=== PATIENT | male | born 1985 | race Asian ===

== ENCOUNTER 2016-11-21 13:30 | Emergency (ER) | payer BC, MEDICAID | END 2016-11-21 14:08 | disposition home or self-care (01) | DX: H66.92 Otitis media, unspecified, left ear (principal); R03.0 Elevated blood-pressure reading, without diagnosis of hypertension ==

== ENCOUNTER 2017-10-20 06:50 | Emergency (ER) | payer MEDICAID ==
[2017-10-20] MEDS ORDERED: ONDANSETRON ODT 4 MG TABLET TL STA (07:34)
[2017-10-20] MEDS ORDERED: KETOROLAC 60 MG/2 ML VIAL IM STA (07:34)
--- NOTE | 2017-10-20 07:42 | ED Physician Documentation ---
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 denies: Loss of vision Ears: denies: Loss of hearing, Ear pain Throat: denies: Sore throat Cardiac: denies: Chest pain / pressure Respiratory: denies: Dyspnea GI: denies: Abdominal Pain, Nausea, Vomiting Neurologic: reports: Headache. denies: Focal weakness, Numbness, Head injury Endocrine: denies: Easy bruising / bleeding Immunocompromised: denies: Immunocompromised PD PAST MEDICAL HISTORY - Past Medical History Past Medical History: No - Past Surgical History Past Surgical History: Yes HEENT: Tonsil/Adenoidectomy - Present Medications Home Medications: Ambulatory Orders Medication Instructions Recorded Confirmed Meloxicam 1 tab PO DAILY 10/20/17 10/20/17 - Allergies Allergies/Adverse Reactions: Allergies Allergy/AdvReac Type Severity Reaction Status Date / Time No Known Drug Allergies Allergy Verified 10/20/17 06:55 - Social History Does the pt smoke?: Yes Smoking Status: Current every day smoker Does the pt drink ETOH?: Yes Does the pt have substance abuse?: No - Immunizations Immunizations are current?: Yes Immunizations: TDAP >10years/unknown - POLST Patient has POLST: No PD ED PE NORMAL - Vitals Vital signs reviewed: Yes - General General: Alert and oriented X 3 - HEENT HEENT: PERRL, EOMI, Other (no TA cord or TTP, globes soft not hazy in injected) - Neck Neck: Supple, no meningeal sign - Cardiac Cardiac: RRR - Respiratory Respiratory: No respiratory distress, Clear bilaterally - Abdomen Abdomen: Soft, Non tender - Derm Derm: Normal color - Neuro Neuro: Alert and oriented X 3, 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, No motor deficit, No sensory deficit, Normal speech Results - Vitals Vitals: Vital Signs - 24 hr 10/20/17 06:50 Temperature 36.2 C L Heart Rate 72 Respiratory 18 Rate Blood Pressure 131/86 H O2 Saturation 98 Oxygen O2 Source Room air - Rads (name of study) CTH Radiology: See rad report (no acute) PD MEDICAL DECISION MAKING - ED course ED course: sounds like migraine given hx of several yr of recurrent same location CARLTON but no outpt imaging this far did get CT which was thankfully neg also exam and hx do not suggest TA, glaucoma, CO exposure, meningitis, SAH etc felt better with toradol and zofran ready to go home Departure - Departure Disposition: 01 Home, Self Care Clinical Impression: Headache Qualifiers: Headache type: unspecified Headache chronicity pattern: episodic headache Intractability: not intractable Qualified Code(s): R51 - Headache Condition: Good Instructions: ED Headache Migraine Follow-Up: Wayne Estes MD [Primary Care Provider] - Comments: The CT was fine. These headaches sound very much like migraines Discuss with your headache specialist if there is any medication you can take to 1) prevent the headaches form occurring (such as propanolol or amitriptyline) 2) to break the headache when it first starts (such as imitrex) Forms: Activity restrictions
--- NOTE | 2017-10-20 08:00 | CT Report ---
EXAM: CT HEAD EXAM DATE: 10/20/2017 07:42 AM. CLINICAL HISTORY: Recurring L sided CARLTON - no imaging thus far. COMPARISON: 01/18/2007. TECHNIQUE: Multiaxial CT images were obtained from the foramen magnum to the vertex. Reformats: Coron al. IV contrast: None. In accordance with CT protocol optimization, one or more of the following dose reduction techniques w ere utilized for this exam: automated exposure control, adjustment of mA and/or KV based on patient s ize, or use of iterative reconstructive technique. FINDINGS: Parenchyma: No intraparenchymal hemorrhage. No evidence of mass, midline shift, or CT findings of inf arction. Davis-white differentiation is distinct. Extraaxial Spaces: Normal for age. No subdural or epidural collections identified. Ventricles: Normal in size and position. Sinuses and Orbits: Imaged paranasal sinuses, orbits, and mastoids show no significant abnormality. Bones: No evidence of fracture or calvarial defect. Other: None. IMPRESSION: Normal head CT. No significant change from prior. [facility] Referring Provider Line: [phone] SITE ID: [id number]
--- NOTE | 2017-10-20 08:00 | CT Preliminary Report ---
Exam: CT HEAD W/O IMPRESSION: Normal head CT. No significant change from prior. [facility] SITE ID: [id number]
[2017-10-20 08:56] VITALS: BP 113/64
== END 2017-10-20 09:05 | disposition home or self-care (01) ==
LOC: ED 06:50
DX: R51 Headache (principal); F17.200 Nicotine dependence, unspecified, uncomplicated
CPT/HCPCS: 70450; 96372; 99283; Q0162

== ENCOUNTER 2017-11-03 16:22 | Emergency (ER) | payer OTHER, MEDICAID ==
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
[2017-11-03] MEDS ORDERED: IBUPROFEN 600 MG TABLET PO STA (19:21)
[2017-11-03] MEDS ORDERED: METHOCARBAMOL 500 MG TABLET PO STA (19:22)
[2017-11-03] MEDS ORDERED: traMADol 50 MG TABLET PO STA (19:22)
--- NOTE | 2017-11-03 20:48 | CT Preliminary Report ---
Exam: CT LUMBAR SPINE W/O IMPRESSION: 1. No acute bony abnormality. 2. Old large central and left-sided disk herniation L4-L5. Moderate central spinal canal stenosis. Mi ld right and moderate to marked left L4-L5 neural foraminal compromise. [facility] SITE ID: [id number]
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
--- NOTE | 2017-11-03 20:49 | CT Preliminary Report ---
Exam: CT HEAD W/O IMPRESSION: Head CT: Negative. Cervical Spine CT: Negative. [facility] SITE ID: [id number]
--- NOTE | 2017-11-03 20:49 | CT Preliminary Report ---
Exam: CT CERVICAL SPINE W/O IMPRESSION: Head CT: Negative. Cervical Spine CT: Negative. [facility] SITE ID: [id number]
--- NOTE | 2017-11-03 20:58 | CT Preliminary Report ---
Exam: CT THORACIC SPINE W/O IMPRESSION: No acute bony abnormality. [facility] SITE ID: [id number]
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
[2017-11-03 21:18] VITALS: BP 115/68
== END 2017-11-03 21:39 | disposition home or self-care (01) ==
LOC: ED 16:22
DX: S16.1XXA Strain of muscle, fascia and tendon at neck level, initial encounter (principal); S39.012A Strain of muscle, fascia and tendon of lower back, initial encounter; S00.03XA Contusion of scalp, initial encounter; V53.5XXA Driver of pick-up truck or van injured in collision with car, pick-up truck or van in traffic accident, initial encounter; Z87.891 Personal history of nicotine dependence
CPT/HCPCS: 70450; 72125; 72128; 72131; 99283; A9270

== ENCOUNTER 2018-02-11 13:27 | Emergency (ER) | payer MEDICAID ==
[2018-02-11 14:14] LABS: CALCIUM 8.8 mg/dL (8.5-10.3); CREATININE 0.9 mg/dL (0.6-1.2)
--- NOTE | 2018-02-11 14:52 | ED Physician Documentation ---
History of Present Illness - Stated complaint Stated Complaint: SOA/WEAKNESS/LIGHTHEAD - Chief complaint Chief Complaint: General - History obtained from History obtained from: Patient - History of Present Illness Timing: How many minutes ago (30) - Additonal information Additional information: The patient is a 32-year-old male who presents with lightheadedness and shortness of breath that started suddenly about 30 minutes prior to arrival while sitting at work. He reports numbness in his fingers, toes, and lips. He denies cough, chest pain, nausea or vomiting. He denies history of similar symptoms in the past. He admits to drinking "a couple of beers" last night. He denies the use of other drugs. Review of Systems Constitutional: denies: Fever Eyes: denies: Decreased vision Ears: denies: Tinnitus/ringing Nose: denies: Congestion Throat: denies: Sore throat Cardiac: denies: Chest pain / pressure Respiratory: denies: Cough GI: denies: Abdominal Pain, Nausea, Vomiting : denies: Dysuria Skin: denies: Rash Musculoskeletal: denies: Extremity pain, Extremity swelling Neurologic: reports: Numbness (Numbness and tingling in his fingertips.). denies: Focal weakness, Headache PD PAST MEDICAL HISTORY - Past Medical History Past Medical History: No Cardiovascular: None Respiratory: None - Past Surgical History Past Surgical History: Yes HEENT: Tonsil/Adenoidectomy - Present Medications Home Medications: Ambulatory Orders Medication Instructions Recorded Confirmed No Known Home Medications [No 02/11/18 02/11/18 Known Home Medications] - Allergies Allergies/Adverse Reactions: Allergies Allergy/AdvReac Type Severity Reaction Status Date / Time No Known Drug Allergies Allergy Verified 10/20/17 06:55 - Social History Does the pt smoke?: No Smoking Status: Never smoker Does the pt drink ETOH?: Yes Does the pt have substance abuse?: No - Immunizations Immunizations are current?: Yes Immunizations: TDAP >10years/unknown - POLST Patient has POLST: No PD ED PE NORMAL - Vitals Vital signs reviewed: Yes (Initially hypertensive.) - General General: Alert and oriented X 3, Well developed/nourished - HEENT HEENT: Atraumatic, Moist mucous membranes, Pharynx benign - Neck Neck: Supple, no meningeal sign, No adenopathy - Cardiac Cardiac: RRR - Respiratory Respiratory: Clear bilaterally - Abdomen Abdomen: Soft, Non tender - Back Back: No CVA TTP - Derm Derm: No rash - Extremities Extremities: No edema, No calf tenderness / cord - Neuro Neuro: Alert and oriented X 3, No motor deficit, Normal speech Results - Vitals Vitals: Oxygen O2 Source Room air - Labs Labs: Laboratory Tests 02/11/18 14:00 Sodium 135 Potassium 3.5 Chloride 103 Carbon Dioxide 25 Anion Gap 7.0 BUN 13 Creatinine 0.9 Estimated GFR (MDRD) 98 Glucose 107 H Calcium 8.8 PD MEDICAL DECISION MAKING - ED course Complexity details: reviewed old records, reviewed results, re-evaluated patient , considered differential, d/w patient ED course: The patient's presentation is most consistent with hyperventilation syndrome. His presentation does not suggest pneumothorax, and I doubt pulmonary embolus, with a pulse oximetry of 100% on room air with no drop in pulse oximetry with physical activity. His blood sugar is normal. He was observed in the emergency department for more than one hour, during which time his symptoms completely resolved. I discussed with him the likely etiology of his symptoms, as well as potentially worrisome signs or symptoms that should prompt reevaluation in the emergency department. - Sepsis Event Vital Signs: Oxygen O2 Source Room air Departure - Departure Disposition: 01 Home, Self Care Clinical Impression: Acute hyperventilation Condition: Stable Instructions: ED Hyperventilation Syndrome Follow-Up: Wayne Estes MD [Primary Care Provider] - Comments: Return to the emergency department if you develop increasing shortness of breath , lightheadedness, or otherwise worsening symptoms. Discharge Date/Time: 02/11/18 15:10
[2018-02-11 14:56] VITALS: BP 131/80
== END 2018-02-11 15:10 | disposition home or self-care (01) ==
LOC: ED 13:27
DX: R06.4 Hyperventilation (principal)
CPT/HCPCS: 36415; 80048; 99283

== ENCOUNTER 2021-08-03 13:11 | Emergency (ER) | payer MEDICAID, OTHER ==
[2021-08-03 13:36] VITALS: BP 119/74
== END 2021-08-03 14:39 | disposition left against medical advice (07) ==
LOC: ED 13:11
DX: Z53.21 Procedure and treatment not carried out due to patient leaving prior to being seen by health care provider (principal)

== ENCOUNTER 2023-09-11 07:24 | Emergency (ER) | payer OTHER ==
[2023-09-11 07:42] VITALS: BP 147/84; O2SAT 100
--- NOTE | 2023-09-11 08:12 | XRAY Report ---
PROCEDURE: Chest 2V INDICATIONS: cough TECHNIQUE: 2 views of the chest were acquired. COMPARISON: None. FINDINGS: Surgical changes and devices: None. Lungs and pleura: No pleural effusions or pneumothorax. Lungs are clear. Mediastinum: Mediastinal contours appear normal. Heart size is normal. Bones and chest wall: No suspicious bony lesions. Overlying soft tissues appear unremarkable. IMPRESSION: No acute cardiopulmonary process. Reviewed by: Phani Forte MD on 09/11/2023 8:11 AM PST Approved by: Phani Forte MD on 09/11/2023 8:11 AM PST Station ID: [id number]
[2023-09-11 08:33] LABS: B. PARAPERTUSSIS- RESP PCR PAN NOT DETECTED; B. PERTUSSIS- RESP PCR PANEL NOT DETECTED; C. PNEUMONIAE- RESP PCR PANEL NOT DETECTED; CORONAVIRUS 229E-RESP PCR NOT DETECTED; CORONAVIRUS HKU1-RESP PCR NOT DETECTED; CORONAVIRUS NL63-RESP PCR NOT DETECTED; CORONAVIRUS OC43-RESP PCR NOT DETECTED; HUMAN METAPNEUMOVIRUS NOT DETECTED; INFLUENZA A- RESP PCR PANEL NOT DETECTED; INFLUENZA B - RESP PCR PANEL NOT DETECTED; M. PNEUMONIAE- RESP PCR PANEL NOT DETECTED; PARAINFLUENZA VIRUS 1 NOT DETECTED; PARAINFLUENZA VIRUS 2 NOT DETECTED; PARAINFLUENZA VIRUS 3 NOT DETECTED; PARAINFLUENZA VIRUS 4 NOT DETECTED; RHINOVIRUS/ENTEROVIRUS NOT DETECTED; RSV- RESP PCR PANEL NOT DETECTED; SARS-CoV-2 -RESP PCR PANEL NOT DETECTED
--- NOTE | 2023-09-11 08:49 | ED Physician Documentation ---
PD HPI URI - Stated complaint Stated Complaint: SOA, COUGHING - Chief complaint Chief Complaint: Resp - History obtained from History obtained from: Patient - Additional information Additional information: Patient is a 38-year-old male presenting for evaluation of a productive cough, nasal congestion and fatigue for the past 3 days. Patient states his symptoms started on Wednesday. He has tried TheraFlu at night without any significant improvement. He patient reports that he wakes up with a worse cough and feels a lot of congestion particular in the mornings. It when he is in the shower he fe els like congestion loosen and feels like this helps with his breathing. He does not smoke. Denies recent travel. States his children have also been ill with similar symptoms. Has not taken a COVID test. No fevers. He has been eating and drinking fine. No vomiting or diarrhea. Review of Systems Constitutional: denies: Fever Nose: reports: Congestion Cardiac: denies: Chest pain / pressure Respiratory: reports: Dyspnea (When coughing), Cough GI: denies: Abdominal Pain, Vomiting PD PAST MEDICAL HISTORY - Past Medical History Cardiovascular: None Respiratory: Sleep apnea, CPAP use Neuro: None Endocrine/Autoimmune: None GI: None : None Psych: None Musculoskeletal: None - Past Surgical History Past Surgical History: Yes HEENT: Tonsil/Adenoidectomy - Present Medications Home Medications: Ambulatory Orders Medication Instructions Recorded Confirmed No Known Home Medications 02/11/18 09/11/23 - Allergies Allergies/Adverse Reactions: Allergies Allergy/AdvReac Type Severity Reaction Status Date / Time No Known Drug Allergies Allergy Verified 09/11/23 07:31 - Social History Does the pt smoke?: No Smoking Status: Former smoker Does the pt drink ETOH?: Yes Does the pt have substance abuse?: No - Immunizations Immunizations are current?: Yes Immunizations: TDAP >10years/unknown - POLST Patient has POLST: No PD ED PE NORMAL - General General: Alert and oriented X 3, No acute distress, Well developed/nourished - HEENT HEENT: Atraumatic, Moist mucous membranes, Pharynx benign - Neck Neck: Supple, no meningeal sign, No bony TTP - Cardiac Cardiac: RRR, Strong equal pulses - Respiratory Respiratory: No respiratory distress, Clear bilaterally - Abdomen Abdomen: Soft, Non tender - Derm Derm: Warm and dry - Neuro Neuro: Normal speech Results - Vitals Vitals: Vital Signs - 24 hr 09/11/23 09/11/23 07:32 08:38 Temperature 36 C L 36 C L Heart Rate 71 Respiratory 20 Rate Blood Pressure 147/84 H O2 Saturation 100 Oxygen O2 Source Room air - Labs Labs: Laboratory Tests 09/11/23 07:40 Nasal Adenovirus (PCR) NOT DETECTED Nasal B. parapertussis DNA (PCR) NOT DETECTED Nasal Coronavir 229E PCR NOT DETECTED Nasal Coronavir HKU1 PCR NOT DETECTED Nasal Coronavir NL63 PCR NOT DETECTED Nasal Coronavir OC43 PCR NOT DETECTED Nasal Enterovir/Rhinovir PCR NOT DETECTED Nasal Influenza B PCR NOT DETECTED Nasal Influenza A PCR NOT DETECTED Nasal Parainfluen 1 PCR NOT DETECTED Nasal Parainfluen 2 PCR NOT DETECTED Nasal Parainfluen 3 PCR NOT DETECTED Nasal Parainfluen 4 PCR NOT DETECTED Nasal RSV (PCR) NOT DETECTED Nasal B.pertussis DNA PCR NOT DETECTED Nasal C.pneumoniae (PCR) NOT DETECTED Gregor Human Metapneumo PCR NOT DETECTED Nasal M.pneumoniae (PCR) NOT DETECTED Nasal SARS-CoV-2 (PCR) NOT DETECTED PD Medical Decision Making - ED course ED course: Patient presenting for evaluation of URI symptoms for few days. Vital signs are stable. Lung sounds are clear. Chest x-ray which I reviewed is negative for consolidation or effusion. Respiratory swab was obtained. Patient symptoms sound viral in nature. He has no wheezing. Recommend continued supportive care which he is agreeable to. Requesting work note as he has been trying to go to work at [employer] for the past few days despite his symptoms. Work note provided and patient counseled on concerning symptoms to return for. Departure - Departure Disposition: 01 Home, Self Care Clinical Impression: Upper respiratory infection with cough and congestion Condition: Stable Instructions: ED Viral Syndrome Comments: Your x-ray shows no signs of pneumonia. Your respiratory swab is negative for COVID, RSV and influenza and a few of the other common cold viruses that we test for. However there are 100s of viruses that can cause a common cold which we do not routinely check for. I would suspect that your symptoms are related to a respiratory virus. Continue with staying hydrated and getting plenty of rest. Use acetaminophen or ibuprofen for any areas of pain. I would recommend saline nasal spray to help loosen up any nasal secretions and also Flonase to help with any nasal congestion. Return to the emergency department with any worsening symptoms. Forms: PCP List, Activity restrictions Discharge Date/Time: 09/11/23 09:01
== END 2023-09-11 09:01 | disposition home or self-care (01) ==
LOC: ED 07:24
DX: J06.9 Acute upper respiratory infection, unspecified (principal); Z87.891 Personal history of nicotine dependence
CPT/HCPCS: 87633; 99283; 99284